=== PATIENT | male | born 1960 | race Two or more races ===

== ENCOUNTER → 2024-10-11 | Outpatient (BNVA) | payer MEDICARE, MEDICAID, SELFPAY | END | disposition home or self-care (01) | PROVIDERS: PCP Family Medicine; Referring Provider Family Medicine; Visit Provider Urology | DX: N40.1 Benign prostatic hyperplasia with lower urinary tract symptoms (principal); N13.8 Other obstructive and reflux uropathy; I10 Essential (primary) hypertension; I25.10 Atherosclerotic heart disease of native coronary artery without angina pectoris; E78.00 Pure hypercholesterolemia, unspecified; I25.2 Old myocardial infarction; K21.9 Gastro-esophageal reflux disease without esophagitis | CPT/HCPCS: 81003; 99212; 99213; G0463 ==

== ENCOUNTER → 2024-11-26 | Outpatient (CLI) | payer MEDICARE, MEDICAID, SELFPAY ==
[2024-11-26 13:45] LABS: Anion Gap 5 (7-16); BUN/Creatinine Ratio 25 Ratio (12-20); Blood Urea Nitrogen 20 mg/dL (9-23); Calcium 9.9 mg/dL (8.3-10.6); Carbon Dioxide 28.8 mMol/L (20.0-31.0); Chloride 105 mMol/L (98-107); Creatinine (Component) 0.8 mg/dL (0.6-1.3); Glucose 114 mg/dL (74-106); Osmolality,Calculated 281 (275-295); Potassium 4.5 mMol/L (3.4-5.1); Sodium 139 mMol/L (136-145); eGFR > 60 See Note
== END | disposition home or self-care (01) ==
LOC: COPL 11:54
PROVIDERS: PCP Family Medicine; Referring Provider Internal Medicine; Visit Provider Internal Medicine
DX: I25.10 Atherosclerotic heart disease of native coronary artery without angina pectoris (principal); I48.91 Unspecified atrial fibrillation
CPT/HCPCS: 36415; 80048

== ENCOUNTER → 2024-12-05 | Outpatient (CLI) | payer MEDICARE, MEDICAID, SELFPAY ==
--- NOTE | 2024-12-05 14:00 | XR_ITS ---
Examination: CT brain head without contrast. CT brain head with intravenous contrast 2-D sagittal reconstructions. 2-D coronal reconstructions. Date and time of exam:December 05, 2024 1417 hours INDICATIONS: Dizziness and headache episodes 1 years CTDI: vol (mGy): 48 DLP: (mGycm):948 Technique: Axial sections of the brain have been obtained. 5 mm slice thickness images have been obtained. Images have been obtained pre and post 50 cc [id number] Low dose protocols were performed. One or more of the following dose reduction techniques were used; automated exposure control, adjustment of the mA and/or KV according to patient size, use of iterative reconstruction technique. Findings: Ventricles are mildly enlarged No mass effect upon the ventricular system No acute hemorrhage density No effacement cortical sulcal markings Postcontrast images demonstrate no abnormal cerebellar or cerebral enhancement IMPRESSION: No acute hemorrhage mass effect or midline shift No acute infarct No abnormal enhancing cerebellar or cerebral lesions
== END | disposition home or self-care (01) ==
LOC: CCTX 13:42
PROVIDERS: PCP Family Medicine; Referring Provider Internal Medicine; Visit Provider Internal Medicine
DX: R42 Dizziness and giddiness (principal)
CPT/HCPCS: 70470; A4649; Q9967

== ENCOUNTER → 2025-03-28 | Outpatient (CLI) | payer MEDICARE, MEDICAID, SELFPAY ==
[2025-03-28 12:13] LABS: Prostate Specific Antigen 0.82 ng/mL (0-4.00)
== END | disposition home or self-care (01) ==
PROVIDERS: PCP Family Medicine; Referring Provider Urology; Visit Provider Urology
DX: N40.1 Benign prostatic hyperplasia with lower urinary tract symptoms (principal)
CPT/HCPCS: 36415; 84153

== ENCOUNTER → 2025-06-09 | Outpatient (BNVA) | payer MEDICARE, MEDICAID, SELFPAY | END | disposition home or self-care (01) | PROVIDERS: PCP Family Medicine; Referring Provider Family Medicine; Visit Provider Urology | DX: N40.1 Benign prostatic hyperplasia with lower urinary tract symptoms (principal); N13.8 Other obstructive and reflux uropathy; I10 Essential (primary) hypertension; I25.10 Atherosclerotic heart disease of native coronary artery without angina pectoris | CPT/HCPCS: 81003; 99212; 99213; G0463 ==